=== PATIENT | male | born 1970 | race Caucasian/White ===

== ENCOUNTER → 2017-11-18 | Outpatient (CLI) | payer OTHER | LOC: COL.RAD 08:05 | DX: M25.551 Pain in right hip (principal) | CPT/HCPCS: A9585; Q9967 ==

== ENCOUNTER → 2017-12-11 | Outpatient (CLI) | payer BC | LOC: COL.RAD 07:37 | DX: B18.2 Chronic viral hepatitis C (principal) ==

== ENCOUNTER → 2018-04-15 | Outpatient (CLI) | payer BC | LOC: MHCPAIN 08:14 | DX: G89.29 Other chronic pain (principal); M54.12 Radiculopathy, cervical region; M47.812 Spondylosis without myelopathy or radiculopathy, cervical region | CPT/HCPCS: G0463 ==

== ENCOUNTER → 2018-04-23 | Outpatient (CLI) | payer BC | LOC: MHCPAIN 07:28 | DX: M47.812 Spondylosis without myelopathy or radiculopathy, cervical region (principal); M54.12 Radiculopathy, cervical region; M50.90 Cervical disc disorder, unspecified, unspecified cervical region | CPT/HCPCS: J1100; Q9967 ==

== ENCOUNTER → 2018-05-12 | Outpatient (CLI) | payer BC | LOC: MHCPAIN 10:03 | DX: G89.29 Other chronic pain (principal); M54.12 Radiculopathy, cervical region; M47.812 Spondylosis without myelopathy or radiculopathy, cervical region | CPT/HCPCS: G0463 ==